=== PATIENT | female | born 1970 | race African-American/Black ===

== ENCOUNTER 2019-07-02 17:50 | Emergency (ER) | payer MEDICAID ==
[~2019-07-02] VITALS: Ht 167.6 cm; Wt 79.5 kg
[2019-07-02 18:18] VITALS: BP 153/93
== END 2019-07-02 18:40 | disposition home or self-care (01) ==
LOC: EMS 17:55
DX: T19.2XXA Foreign body in vulva and vagina, initial encounter (principal); F17.210 Nicotine dependence, cigarettes, uncomplicated; W45.8XXA Other foreign body or object entering through skin, initial encounter; Y93.89 Activity, other specified; Y92.89 Other specified places as the place of occurrence of the external cause; Y99.8 Other external cause status
CPT/HCPCS: 99406

== ENCOUNTER 2024-05-03 18:55 | Emergency (ER) | payer MEDICAID ==
[~2024-05-03] VITALS: Ht 154.9 cm; Wt 81.8 kg
[2024-05-03 19:03] VITALS: BP 149/77; PULSE 101; RESP 18; TEMP 98.7; O2SAT 100
== END 2024-05-03 22:00 | disposition left against medical advice (07) ==
LOC: EMS 19:10
DX: M79.601 Pain in right arm (principal); Z53.21 Procedure and treatment not carried out due to patient leaving prior to being seen by health care provider